=== PATIENT | male | born 1990 | race Caucasian/White ===

== ENCOUNTER 2023-04-26 09:48 | Emergency (ER) | payer SELFPAY ==
[2023-04-26 09:50] VITALS: BP 157/100; PULSE 98; RESP 14; TEMP 36.8; O2SAT 98
--- NOTE | 2023-04-26 10:35 | EDS_ITS ---
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 He states he was up on a roof and slipped on an aluminum siding fell and hit his head. No LOC. He does have a headache and had some mild nausea. He states initially had trouble reading. His symptoms are all improving. He was sent to urgent care for evaluation and they referred him to the ER. Patient states he still has a mild headache and some mild nausea but has not vomited. He does not feel dizzy or lightheaded. He does not have any neck pain. He states he hit the back of his head but did not sustain any lacerations or abrasions. PFSH PFSH Medical History Hx of fracture of clavicle Torn ACL Home Medications ondansetron 4 mg disintegrating tablet 4 mg PO Q8H PRN PRN Nausea #20 tabs 04/26/23 [Rx Last Taken Unknown] Allergy/AdvReac Type Severity Reaction Status Date / Time amoxicillin Allergy Rash Verified 04/26/23 09:50 Social History Smoking Status: Never smoker ROS ROS ED Constitutional Constitutional ED: Denies chills, fever(s) or sweats Eyes Eyes: Denies blurry vision or change in vision ENT ENT ED: Denies ear pain or sore throat Cardiovascular Cardiovascular: Denies chest pain, palpitations or racing heartbeat Respiratory/Chest Respiratory/Chest: Denies cough, dyspnea or sputum Gastrointestinal Gastrointestinal: Reports nausea; Denies abdominal pain, constipation, diarrhea or vomiting Genitourinary Genitourinary ED: Denies dysuria, hematuria or urinary frequency Musculoskeletal Musculoskeletal: Denies arthralgias, myalgias or neck pain Integumentary Denies abscess, Abrasions or rash Neurologic Neurologic: Reports headache(s); Denies paresthesias or weakness Psychiatric Psychiatric: Denies anxiety, depression, suicidal ideation or suicidal thoughts Endocrine Endocrinology: Denies polydipsia or polyuria EXAM Physical Exam Const Vital Signs: 04/26/23 09:50 Temperature 98.3 F Temperature Source Temporal Pulse Rate 98 Respiratory Rate 14 Blood Pressure 157/100 H Blood Pressure Mean 119 Pulse Ox 98 Oxygen Delivery Method Room Air Positive well nourished General Appearance ED: NAD; Negative for pallor HEENT Reports normocephalic and TM's clear atraumatic and trauma Tympanic Membrane ED: Yes TM's clear Eyes PERRL and EOMs intact bilaterally Neck no lymphadenopathy and supple Resp normal respiratory effort Auscultation: Negative for rales, rhonchi or wheezes Cardio regular rate and regular rhythm Extremity normal to inspection Neuro oriented x3 and CN's II-XII intact bilaterally Neuro Narrative: Focal neurologic deficits or lateralizing signs or symptoms [place] Coma Scale: document GCS findings Spontaneous Obeys Commands Oriented 15 Sensorium / Orientation: awake, alert, oriented to person, oriented to place and oriented to time Coordination / Balance: [id number] test normal and Romberg test negative Speech: speech normal Gait (Neuro): normal gait Motor Exam: strength 5/5 throughout Psych mental status grossly normal Skin General Skin Exam: Negative for jaundice or pallor MDM MDM MDM Narrative Medical decision making narrative: Patient with head injury and likely mild concussion. No focal neurologic deficits or lateralizing signs or symptoms. His neurologic exam is essentially normal. His physical exam unremarkable. Patient feels like his headache is not that bad but he does have some mild nausea as well. Given this I will treat him as a concussion. He is given Zofran and Tylenol. I do not believe he needs a head CT. 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 He is amenable to some work restrictions and will follow-up with the [facility] as needed. Impression: 1. Mechanical fall 2. Closed head injury 3. Concussion Lab Data Attestation: I reviewed the patient's lab results. Discharge Plan Triage Chief Complaint: Headache ED Provider: Enoch Lou Dx/Rx/DC Orders Instructions: ED Concussion Prescriptions: New ondansetron 4 mg tablet,disintegrating 4 mg PO Q8H PRN PRN (Reason: Nausea) Qty: 20 0RF Referrals: [facility] [Non-Staff] - 3-5 Days Disposition Disposition: Home, Self Care
[2023-04-26] MEDS: Acetaminophen 500 MG Tablet 1000 MG PO (10:41)
[2023-04-26] MEDS: Ondansetron ODT 4 MG Tablet PO (10:42)
[2023-04-26 11:46] VITALS: BMI 38.1
--- NOTE | 2023-04-26 11:48 | ED.RN ---
drug screen required. pt [facility] upon discharge from here
== END 2023-04-26 11:50 | disposition home or self-care (01) ==
PROVIDERS: Emergency Provider Student in an Organized Health Care Education/Training Program; Visit Provider Student in an Organized Health Care Education/Training Program
DX: S06.0X0A Concussion without loss of consciousness, initial encounter (principal); W13.2XXA Fall from, out of or through roof, initial encounter
CPT/HCPCS: 99283

== ENCOUNTER 2023-08-14 09:21 | Emergency (ER) | payer OTHER, SELFPAY ==
[2023-08-14 09:21] VITALS: BP 129/114; PULSE 71; RESP 18; TEMP 35.3; O2SAT 99; BMI 37.5
--- NOTE | 2023-08-14 09:27 | EX.ED.DYSGE1 ---
HPI History of Present Illness Chief Complaint: Flank Pain Informant: patient Onset/Context/Timing Onset: Today Context: Sudden Onset Timing: Intermittent Quality: Sharp Location: Right flank Worsened by: Movement Relieved by: Toradol Narrative Narrative: Patient presents with right flank pain that began today. Patient states it began rather suddenly. Patient states that it radiated around to his lower abdomen. Patient states that currently his pain has resolved. Patient started having some nausea and vomiting with this. Patient admits to some dysuria and urgency. Patient denies any hematuria. Patient admits to some chills and sweats. EMS administered Toradol which improved his pain. Patient states his pain is worse with movement. PFSH PFS Medical History (Updated 08/14/23 @ 11:[address] Kyle Morales DO) Hx of fracture of clavicle Kidney stone Torn ACL Home Medications ondansetron 4 mg disintegrating tablet 4 mg PO Q8H PRN PRN Nausea #20 tabs 04/26/23 [Rx Last Taken Unknown] hydrocodone-acetaminophen 5-325mg 5mg-325mg 1 tab PO Q6H PRN PRN Pain 3 days #10 TABLETS 08/14/23 [Rx Last Taken Unknown] Allergy/AdvReac Type Severity Reaction Status Date / Time amoxicillin Allergy Rash Verified 04/26/23 09:50 Surgical History (Updated 08/14/23 @ 09:[address] Kyle Morales DO) History of repair of anterior cruciate ligament of right knee Social History Smoking Status: Never smoker ROS ROS ED Constitutional Constitutional ED: Reports chills, subjective and sweats; Denies fever(s) Eyes Eyes: Denies blurry vision or change in vision ENT ENT ED: Denies rhinorrhea or sore throat Cardiovascular Cardiovascular: Denies chest pain or palpitations Respiratory/Chest Respiratory/Chest: Denies cough or dyspnea Gastrointestinal Gastrointestinal: Reports nausea and vomiting Genitourinary Genitourinary ED: Reports dysuria and urinary urgency; Denies hematuria Musculoskeletal Musculoskeletal: Reports back pain; Denies neck pain Integumentary Denies abscess or rash Neurologic Neurologic: Denies headache(s) or weakness Allergic/Immunologic Allergic/Immunologic ED: Denies mouth swelling or urticaria EXAM Physical Exam Const Vital Signs: 08/14/23 09:21 Temperature 95.6 F L Temperature Source Temporal Pulse Rate 71 Respiratory Rate 18 Blood Pressure 129/114 H Blood Pressure Mean 119 Pulse Ox 99 Oxygen Delivery Method Room Air Positive well nourished and well developed General Appearance ED: well developed and NAD HEENT Reports moist mucous membranes Neck supple and no JVD Chest Wall palpation of chest normal Resp normal respiratory effort and clear to auscultation bilaterally Cardio regular rate and regular rhythm GI non-tender and non-distended Palpation: soft Back/Spine General Back: CVA tenderness right (Mild) Neuro oriented x3, CN's II-XII intact bilaterally and no sensory deficits noted Sensorium / Orientation: alert Motor Exam: strength 5/5 throughout Psych mental status grossly normal MDM MDM MDM Narrative Medical decision making narrative: Differential diagnosis includes ureteral calculus, pyelonephritis, bowel obstruction, perforation, appendicitis, and electrolyte abnormality. CBC will be obtained to assess for leukocytosis and anemia. Basic metabolic profile will be obtained to assess for renal function and electrolyte abnormality. Urinalysis will be obtained to assess for urinary tract infection and hematuria. CT scan of the abdomen pelvis will be obtained to assess for ureteral calculus, bowel obstruction, perforation, and appendicitis. Lab Data Attestation: I reviewed the patient's lab results. Lab results narrative: CBC was reviewed and was within normal limits. Basic metabolic profile was reviewed and was within normal limits. Urinalysis was reviewed. Occult blood was 250 with 25-50 red blood cells. There is no evidence of urinary tract infection. Labs: Laboratory Results - last 24 hr 08/14/23 08/14/23 09:34 09:43 WBC 6.7 RBC 5.32 Hgb 16.0 Hct 46.4 MCV 87.2 MCH 30.1 MCHC 34.5 RDW Std Deviation 38.9 RDW Coeff of Ulices 12.4 Plt Count 281 MPV 10.2 Immature Gran % (Auto) 0.100 Neut % (Auto) 55.9 Lymph % (Auto) 35.0 [place] % (Auto) 6.9 Eos % (Auto) 1.2 Baso % (Auto) 0.9 Absolute Neuts (auto) 3.8 Absolute Lymphs (auto) 2.35 Nucleated RBC % 0 Sodium 141 Potassium 3.9 Chloride 105 Carbon Dioxide 30.0 Anion Gap 6 BUN 15 Creatinine 1.04 Estim Creat Clear Calc 121.63 Est GFR (MDRD) Af Amer 105 Est GFR (MDRD) Non-Af 87 BUN/Creatinine Ratio 14.4 Glucose 120 H Calcium 9.3 Urine Color Yellow Urine Clarity Sl. Cloudy Urine pH 8.0 Ur Specific [place] 1.010 Urine Protein 30 H Urine Glucose (UA) Normal Urine Ketones 5 H Urine Occult Blood 250 H Urine Nitrite Negative Urine Bilirubin Negative Urine Urobilinogen 1 H Ur Leukocyte Esterase 25 H Urine RBC 25-50 SEEN Urine WBC 0-5 SEEN Ur Squamous Epith Cells 0 SEEN Urine Bacteria 1+ Urine Mucus 0 SEEN Radiography Diagnostic Testing: Clinical Impression(s) from Imaging Studies Abdomen/Pelvis CT 08/14/23 10:12 IMPRESSION: Several hypodense nodules in the liver as described. Correlation with enhanced CT scan of the abdomen or ultrasound recommended for further evaluation. 3.2 mm calculus is seen in distal portion of the right ureter causing mild right hydronephrosis. Nonobstructive punctate calculi in the lower pole calyx of the right kidney. Electronically Signed: Juan Francisco Mix MD at 10:38 EDT , CT scan of the abdomen pelvis was obtained. There is a 3.2 mm calculus in the distal portion of the right ureter causing mild right hydronephrosis. There are several hypodense nodules in the liver noted. There are nonobstructive calculi in the lower pole of the right kidney. This was interpreted by the radiologist was also independently reviewed by myself. Treatment and Re-Evaluation :: Patient was given IV fluids. EMS administered Toradol prior to arrival. Currently, the patient does not require any analgesics. Patient is resting comfortably on reevaluation. Patient was advised of his findings. Patient was given a prescription for a short course of [place]. Patient was given a referral for urology. Patient was instructed to drink plenty of fluids. Patient was instructed to follow-up with his primary care physician and urology in 3 to 5 days. Patient understood and was agreeable with the plan. All questions were answered. Discharge Plan Triage Chief Complaint: Flank Pain ED Provider: Kyle Morales Dx/Rx/DC Orders Clinical Impression: Acute right flank pain, Calculus of distal right ureter Instructions: ED Kidney Stone with Pain Prescriptions: New hydrocodone-acetaminophen [hydrocodone-acetaminophen] 5-325 mg tablet 1 tab PO Q6H PRN PRN (Reason: Pain) 3 Days Qty: 10 0RF No Action ondansetron 4 mg tablet,disintegrating 4 mg PO Q8H PRN PRN (Reason: Nausea) Qty: 20 0RF Primary Care Provider: Care Physician,No Primary Referrals: Paulina Morales MD [Med Staff - Wire Cutter] - 5-7 Days Itz Ny MD [Med Staff - Active Staff] - 3-5 Days Care Physician,No Primary [Primary Care Provider] - Disposition Disposition: Home, Self Care
[2023-08-14 09:48] LABS: Absolute Lymphocyte Count 2.35 X10^3/uL (0.83-4.51); Absolute Neutrophil Count 3.8 X10^3/uL (2.0-7.7); Basophil# 0.06 X10^3/uL; Basophil% 0.9 % (0-1); Eosinophil# 0.08 X10^3/uL; Eosinophils% 1.2 % (0-5); Hematocrit 46.4 % (40-54); Lymphocyte # 2.35 X10^3/ul (0.83-4.51); Mean Corp Hgb Conc 34.5 g/dL (32-36); Mean Corpuscular Hgb 30.1 pg (27.0-32.0); Mean Corpuscular Volume 87.2 fL (80-94); Mean Platelet Vol. 10.2 fl (6.2-12.0); Monocyte# 0.46 X10^3/uL; Monocyte% 6.9 % (0-10); NRBC Flagged by Analyzer 0 % (0-5); Neutrophil # 3.75 X10^3/uL (2.7-7.7); Neutrophil % 55.9 % (47-70); Platelet Count 281 K/mm3 (150-450); RBC Distribution Width CV 12.4 % (11.6-14.6); RBC Distribution Width SD 38.9 fl (35.1-43.9); Red Blood Count 5.32 M/mm3 (4.6-6.2); White Blood Count 6.7 K/mm3 (4.4-11.0)
[2023-08-14 09:51] LABS: Mucous, Urine 0 SEEN /hpf (<or=2+); Squamous Epithelial Cells - UA 0 SEEN /hpf (0-5)
[2023-08-14 09:53] LABS: Color, Urine Yellow (Yellow); Glucose, Dipstick Normal (Normal); Ketone-Dipstick 5 mg/dl (Negative); Leukocyte Esterase-Dipstick 25 /ul (Negative); Nitrite-Dipstick Negative (Negative); Occult Blood-Urine 250 /ul (Negative); Protein-Dipstick 30 mg/dl (Negative); Urine Bilirubin Dipstick Negative (Negative); Urine Clarity Sl. Cloudy (Clear); Urine Urobilinogen 1 mg/dl (Normal)
[2023-08-14] MEDS: 0.9% Normal Saline (1000mL) 1,000 ML 1000 ML IV (09:53)
[2023-08-14 09:59] LABS: Anion Gap 6 (5-15); BUN 15 mg/dL (7-18); BUN/Creat Ratio 14.4 RATIO (10-20); Calcium,Total 9.3 mg/dL (8.5-10.1); Chloride 105 mmol/L (98-107); Creatinine, Serum 1.04 mg/dL (0.70-1.30); EST Glomerular Filtration Rate 87 mL/min (>60); Est Glom Filt Rate - Afr Amer 105 mL/min (>60); Estimated Creatinine Clearance 121.63 ml/min; Glucose 120 mg/dL (74-106); Potassium 3.9 mmol/L (3.5-5.1); Sodium Level 141 mmol/L (136-145)
[2023-08-14 10:01] LABS: Bacteria 1+ /hpf (None Seen); Red Blood Cells-Urine 25-50 SEEN /hpf (0-5); White Blood Cells 0-5 SEEN /hpf (0-5)
--- NOTE | 2023-08-14 10:12 | CT_ITS ---
STUDY: CT ABDOMEN AND PELVIS WITHOUT CONTRAST REASON FOR EXAM: Male, 32 years old. Right flank pain RADIATION DOSAGE (If Supplied By Facility): CTDIvol = ( 15.86 ) mGy, DLP = ( 907.49 ) mGycm TECHNIQUE: Transaxial images were obtained from the dome of the diaphragm to the symphysis pubis without oral contrast, and without intravenous contrast. Sagittal and coronal images were reconstructed. Individualized dose optimization techniques were used for this CT. COMPARISON: None. FINDINGS: The visualized lung bases are unremarkable. The visualized portions of the heart are within normal limits. There are several hypodense nodules scattered throughout the liver. These are not typical cysts. The largest measures 3.9 cm x 3.5 cm. This is in the posterior aspect of the right lobe of the liver. Correlation with either enhanced CT scan of the abdomen or ultrasound of the abdomen recommended for further evaluation. Normal gallbladder and extrahepatic biliary system. Normal spleen. Normal pancreas. Normal bilateral adrenal glands. Punctate calculi are seen in the lower pole calyx of the right kidney. There is a mild degree of right hydronephrosis due to a 3.2 mm calculus in the distal portion of the right ureter. Normal left kidney. Normal visualized stomach. Normal small intestine. Normal colon. The appendix is visualized and appears normal. Normal abdominal aorta. Normal inferior vena cava. Normal retroperitoneum. Normal urinary bladder. There is a small umbilical hernia containing fat. Normal osseous structures. CT/Abdomen/Pelvis without Cont IMPRESSION: Several hypodense nodules in the liver as described. Correlation with enhanced CT scan of the abdomen or ultrasound recommended for further evaluation. 3.2 mm calculus is seen in distal portion of the right ureter causing mild right hydronephrosis. Nonobstructive punctate calculi in the lower pole calyx of the right kidney. Electronically Signed: Juan Francisco Mix MD at 10:38 EDT ,
[2023-08-14] MEDS: HYDROcodone Bitartrate/Apap 5/325 Tablet PO (11:23)
[2023-08-14 11:27] VITALS: BP 124/69; PULSE 72; RESP 15; TEMP 36.3; O2SAT 98
== END 2023-08-14 11:30 | disposition home or self-care (01) ==
PROVIDERS: Emergency Provider Emergency Medicine; Visit Provider Emergency Medicine
DX: R10.9 Unspecified abdominal pain (principal); N13.2 Hydronephrosis with renal and ureteral calculous obstruction
CPT/HCPCS: 74176; 80048; 81001; 85025; 96360; 99283; J7030; A4216